=== PATIENT | female | born 1950 | race Caucasian/White ===

== ENCOUNTER 2022-07-20 06:49 | Inpatient (IN) | payer MEDICARE ==
[2022-07-14 15:44] VITALS: BMI 33.6
[2022-07-15 11:29] LABS: Bilirubin Neg (Negative); Blood, Urine 25 (Negative); Clarity Clear (Clear); Glucose, Urine (Dipstick) Normal (Negative); Ketone, Urine Negative (Negative); Leukocyte 100 (Negative); Nitrite Negative (Negative); Protein, Urine (Dipstick) Negative (Neg-Trace); Urobilinogen Normal mg/dL (Less than 2)
[2022-07-20] MEDS ORDERED: Tranexamic Acid 1,000 MG/10 ML VIAL ONE (07:25)
[2022-07-20] MEDS ORDERED: Sodium Chloride 0.9% 100 ML ONE ×2 (07:25→09:25)
[2022-07-20] MEDS ORDERED: Vancomycin (BATCH) 1.5 GRAM/300 ML BAG ONE (07:25)
[2022-07-20] MEDS ORDERED: Ropivacaine 0.5% HCl/PF (150 MG/30 ML VIAL) ONE (08:10)
[2022-07-20] MEDS ORDERED: Midazolam HCl 2 mg/2 ml Vial ONE (08:10)
[2022-07-20] MEDS ORDERED: FENTANYL 50 MCG/ML 1 ML VIAL ONE ×4 (08:10→12:39)
[2022-07-20 08:30] LABS: Prothrombin Time 13.6 sec (12.0-14.7)
[2022-07-20 08:31] LABS: PTT 82.6 sec (22.9-36.1)
[2022-07-20 08:48] LABS: SARS-CoV-2 NAA Rapid Test Not Detected (NotDetected)
[2022-07-20] MEDS ORDERED: Bupivacaine PF 0.5% 30 ML VIAL ONE (09:09)
[2022-07-20] MEDS ORDERED: fentaNYL PF 100 MCG/2 ML SYRINGE ONE ×2 (09:11→10:19)
[2022-07-20] MEDS ORDERED: Zolpidem Tartrate 5 MG TAB PO PRN ×2 (09:15→09:50)
[2022-07-20] MEDS ORDERED: Ropivacaine 0.2% 550 ML 550 ML NERVE BLCK SCH (09:15)
[2022-07-20] MEDS ORDERED: HYDROcodone/Acetaminophen 10/325 mg Tablet PO PRN (09:15)
[2022-07-20] MEDS ORDERED: Ondansetron PF 4 MG/2 ML Vial IVP PRN ×2 (09:15→09:50)
[2022-07-20] MEDS ORDERED: FENTANYL 50 MCG/ML 1 ML VIAL SLOW IVP PRN (09:15)
[2022-07-20] MEDS ORDERED: Promethazine HCl 25 MG/ML VIAL IM PRN ×2 (09:15→09:50)
[2022-07-20] MEDS ORDERED: traMADol HCl 50 MG TAB PO PRN ×2 (09:15)
[2022-07-20] MEDS ORDERED: CEFAZOLIN 2 GM VIAL ONE (09:25)
[2022-07-20] MEDS ORDERED: ePHEDrine 50 MG/ML VIAL ONE (09:34)
[2022-07-20] MEDS ORDERED: Ondansetron PF 4 MG/2 ML Vial ONE (09:34)
[2022-07-20] MEDS ORDERED: PROPOFOL 200 MG/20 ML VIAL ONE (09:34)
[2022-07-20] MEDS ORDERED: Dexamethasone 20 MG/5 ML VIAL ONE (09:34)
[2022-07-20] MEDS ORDERED: Acetaminophen 325 MG TAB PO PRN (09:50)
[2022-07-20] MEDS ORDERED: diphenhydrAMINE 25 MG CAP PO PRN (09:50)
[2022-07-20] MEDS ORDERED: Tranexamic Acid 1,000 MG in Sodium Chloride 0.9% 100 ML IVPB SCH (10:00)
[2022-07-20] MEDS ORDERED: HYDROmorphone 2 MG/ML VIAL ONE (11:13)
[2022-07-20] MEDS: Ketorolac Tromethamine 30 MG/ML VIAL IVP SCH ×3 (12:03→23:03)
[2022-07-20] MEDS: Sodium Chloride 0.9% 1,000 ML IV SCH ×2 (15:02→21:52)
[2022-07-20] MEDS: HYDROcodone/Acetaminophen 10/325 mg Tablet PO PRN (16:24)
[2022-07-20] MEDS: CEFAZOLIN 2 GM in Sodium Chloride 0.9% 100 ML IVPB SCH (16:31)
[2022-07-20] MEDS: Aspirin 81 mg Enteric Coated Tablet PO SCH (21:52)
[2022-07-20] MEDS ORDERED: Vancomycin 1.5 GRAM/300 ML BAG 1.5 GM in Premix Bag 1 BAG IVPB SCH (22:00)
[2022-07-21] MEDS: CEFAZOLIN 2 GM in Sodium Chloride 0.9% 100 ML IVPB SCH (02:33)
[2022-07-21] MEDS: HYDROcodone/Acetaminophen 10/325 mg Tablet PO PRN ×4 (03:29→21:24)
[2022-07-21 05:59] LABS: Hemoglobin 11.2 g/dL (12.0-16.0); Mean Corpuscular HGB CONC 32.6 g/dL (32.0-36.0); Mean Corpuscular Hemoglobin 28.9 pg (27.0-31.0); Mean Corpuscular Volume 88.6 fl (78.0-98.0); Mean Platelet Volume 7.3 fL (7.4-10.4); Platelet Count 337 10x3/uL (130-400); Red Blood Cell (RBC) Count 3.87 mill/uL (4.20-5.40); White Blood Cell (WBC) Count 16.7 10x3/uL (4.8-10.8)
[2022-07-21] MEDS: Ketorolac Tromethamine 30 MG/ML VIAL IVP SCH ×3 (06:33→17:36)
[2022-07-21] MEDS: Sodium Chloride 0.9% 1,000 ML IV SCH ×2 (06:33→17:35)
[2022-07-21] MEDS ORDERED: Vortioxetine Hydrobromide [Trintellix] 20 MG Tablet PO SCH (09:00)
[2022-07-21] MEDS ORDERED: FLU VACC QS2022-23(65YR UP)/PF 240 MCG/0.7 ML SYRINGE IM ONE (09:00)
[2022-07-21] MEDS ORDERED: Liraglutide [Victoza 3-Pak] 0.6 MG/0.1 ML Pen.Injctr SC SCH (09:00)
[2022-07-21] MEDS: Amlodipine 10 MG TAB PO SCH (09:47)
[2022-07-21] MEDS: Senokot S 8.6-50 MG TAB PO SCH ×2 (09:48→21:24)
[2022-07-21] MEDS: Aspirin 81 mg Enteric Coated Tablet PO SCH (09:48)
[2022-07-21] MEDS: Ondansetron ODT 8 MG TAB PO SCH (09:49)
[2022-07-21] MEDS: Multivitamin W/ Minerals 1 TAB PO SCH (09:49)
[2022-07-21] MEDS: busPIRone HCl 10 MG TAB PO SCH (09:49)
[2022-07-21] MEDS: Losartan 25 MG TAB PO SCH (09:49)
[2022-07-21] MEDS: Ferrous Gluconate 324 MG TAB PO SCH ×2 (09:49→16:16)
[2022-07-22] MEDS: Aspirin 81 mg Enteric Coated Tablet PO SCH ×2 (03:59→11:34)
[2022-07-22] MEDS: Ketorolac Tromethamine 30 MG/ML VIAL IVP SCH ×2 (04:00→06:50)
[2022-07-22] MEDS: Sodium Chloride 0.9% 1,000 ML IV SCH ×2 (04:00→09:27)
[2022-07-22] MEDS: HYDROcodone/Acetaminophen 10/325 mg Tablet PO PRN ×4 (04:56→22:29)
[2022-07-22 06:14] LABS: Hemoglobin 10.2 g/dL (12.0-16.0); Mean Corpuscular HGB CONC 32.1 g/dL (32.0-36.0); Mean Corpuscular Hemoglobin 28.8 pg (27.0-31.0); Mean Corpuscular Volume 89.8 fl (78.0-98.0); Mean Platelet Volume 7.2 fL (7.4-10.4); Platelet Count 309 10x3/uL (130-400); RBC Distribution Width 13.1 % (11.5-14.5); Red Blood Cell (RBC) Count 3.54 mill/uL (4.20-5.40); White Blood Cell (WBC) Count 13.8 10x3/uL (4.8-10.8)
[2022-07-22] MEDS: Losartan 25 MG TAB PO SCH (09:43)
[2022-07-22] MEDS: busPIRone HCl 10 MG TAB PO SCH (09:43)
[2022-07-22] MEDS: Senokot S 8.6-50 MG TAB PO SCH ×2 (09:44→22:31)
[2022-07-22] MEDS: Multivitamin W/ Minerals 1 TAB PO SCH (09:44)
[2022-07-22] MEDS: Amlodipine 10 MG TAB PO SCH (09:44)
[2022-07-22] MEDS: Ferrous Gluconate 324 MG TAB PO SCH ×2 (09:45→18:01)
[2022-07-22] MEDS: Ondansetron ODT 8 MG TAB PO SCH (09:50)
[2022-07-23] MEDS: Sodium Chloride 0.9% 1,000 ML IV SCH ×2 (04:52→08:35)
[2022-07-23] MEDS: Aspirin 81 mg Enteric Coated Tablet PO SCH ×2 (04:52→08:34)
[2022-07-23 06:16] LABS: Hemoglobin 10.5 g/dL (12.0-16.0); Mean Corpuscular HGB CONC 31.9 g/dL (32.0-36.0); Mean Corpuscular Volume 90.8 fl (78.0-98.0); Mean Platelet Volume 7.5 fL (7.4-10.4); Platelet Count 343 10x3/uL (130-400); White Blood Cell (WBC) Count 14.1 10x3/uL (4.8-10.8)
[2022-07-23] MEDS: HYDROcodone/Acetaminophen 10/325 mg Tablet PO PRN (08:32)
[2022-07-23] MEDS: Multivitamin W/ Minerals 1 TAB PO SCH (08:33)
[2022-07-23] MEDS: Ferrous Gluconate 324 MG TAB PO SCH (08:34)
[2022-07-23] MEDS: busPIRone HCl 10 MG TAB PO SCH (08:35)
[2022-07-23] MEDS: Losartan 25 MG TAB PO SCH (08:35)
[2022-07-23] MEDS: Amlodipine 10 MG TAB PO SCH (08:35)
[2022-07-23] MEDS: Ondansetron ODT 8 MG TAB PO SCH (08:35)
[2022-07-23] MEDS: Senokot S 8.6-50 MG TAB PO SCH (08:35)
[2022-07-23 12:25] VITALS: BP 127/67; TEMP 99.1
== END 2022-07-23 15:10 | disposition home or self-care (01) | DRG 470 ==
LOC: SDC 06:49 → EDSTATUS 10:45 → SURG B 15:28 → OBSVTOIN 07-22 13:46
PROVIDERS: ADMIT Orthopaedic Surgery; ATTEND Orthopaedic Surgery
PROC: 0SRC0J9 Replacement of Right Knee Joint with Synthetic Substitute, Cemented, Open Approach (ICD-10-PCS; principal; 2022-07-20)
DX: M17.11 Unilateral primary osteoarthritis, right knee (principal); D68.51 Activated protein C resistance; D72.829 Elevated white blood cell count, unspecified; D50.0 Iron deficiency anemia secondary to blood loss (chronic); F41.9 Anxiety disorder, unspecified; E78.00 Pure hypercholesterolemia, unspecified; F32.A Depression, unspecified; E11.9 Type 2 diabetes mellitus without complications; Z20.822 Contact with and (suspected) exposure to COVID-19; Z86.73 Personal history of transient ischemic attack (TIA), and cerebral infarction without residual deficits
CPT/HCPCS: 36415; 81003; 85027; 85610; 85730; 86850; 86900; 86901; 87081; 96365; 96366; 96367; 96376; A4306; C1713; C1776; G0378; J1100; J1170; J2250; J2405; J2704; J2795; J3010; J3370; J3490; Q0162; S0020; U0002

== ENCOUNTER 2024-06-29 09:01 | Outpatient (CLI) | payer MEDICARE | END 2024-06-29 09:02 | disposition home or self-care (01) | LOC: CT 09:01 | PROVIDERS: ATTEND Internal Medicine Gastroenterology | DX: Z12.11 Encounter for screening for malignant neoplasm of colon (principal); E11.9 Type 2 diabetes mellitus without complications; R11.2 Nausea with vomiting, unspecified; R10.13 Epigastric pain; R19.5 Other fecal abnormalities; M19.90 Unspecified osteoarthritis, unspecified site; R19.00 Intra-abdominal and pelvic swelling, mass and lump, unspecified site; N13.1 Hydronephrosis with ureteral stricture, not elsewhere classified | CPT/HCPCS: 36415; 74177; 82565 ==